=== PATIENT | female | born 1985 | race American Indian/Alaskan Native ===

== ENCOUNTER 2017-01-29 12:49 | Emergency (ER) | payer OTHER ==
[2017-01-29 12:54] VITALS: BP 176/95
[2017-01-29] MEDS ORDERED: BOOSTRIX IM ONE (12:57)
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
== END 2017-01-29 15:45 | disposition left against medical advice (07) ==
LOC: ED 12:49
DX: Z53.21 Procedure and treatment not carried out due to patient leaving prior to being seen by health care provider (principal)

== ENCOUNTER 2019-05-19 16:30 | Emergency (ER) | payer OTHER ==
--- NOTE | 2019-05-19 17:24 | Emergency Department Report ---
Blank Doc - Documentation Documentation: 33-year-old female that presents with URI symptoms. This initial assessment/diagnostic orders/clinical plan/treatment(s) is/are subject to change based on patient's health status, clinical progression and re- assessment by fellow clinical providers in the ED. Further treatment and workup at subsequent clinical providers discretion. Patient/guardians urged not to elope from the ED as their condition may be serious if not clinically assessed and managed. Initial orders include: 1- Patient sent to [facility] for further evaluation and treatment 2- cxr
--- NOTE | 2019-05-19 18:00 | XRay Report ---
CHEST 2 VIEWS INDICATION / CLINICAL INFORMATION: cough. COMPARISON: None available. FINDINGS: SUPPORT DEVICES: None. HEART / MEDIASTINUM: No significant abnormality. LUNGS / PLEURA: No significant pulmonary or pleural abnormality. No pneumothorax. ADDITIONAL FINDINGS: No significant additional findings. IMPRESSION: 1. No acute findings. Signer Name: Lj Garcia MD Signed: 05/19/2019 5:56 PM Workstation Name: [id number]
[2019-05-19] MEDS ORDERED: IBUPROFEN 600 MG TAB PO ONE (20:23)
[2019-05-19] MEDS ORDERED: IPRATROPIUM/ALBUTEROL SULFATE 3 ML AMPUL.NEB IH ONE (20:23)
[2019-05-19] MEDS ORDERED: predniSONE 20 MG TAB PO ONE (20:23)
--- NOTE | 2019-05-19 22:07 | Emergency Department Report ---
- General Chief Complaint: Upper Respiratory Infection Stated Complaint: COUGHING/CHEST PAIN Time Seen by Provider: 05/19/19 17:23 Source: patient Mode of arrival: Ambulatory Limitations: No Limitations - History of Present Illness Initial Comments: Patient is a 33-year-old [place] female with no past medical history but chronic tobacco smoker who presents to the ED with complaint of acute onset persistent nasal and sinus congestion, persistent dry cough, pleuritic chest wall pain, and wheezing and shortness of breath for the last 2 days. Patient states that she's been taking [id number] decongestants with no relief. Patient denies dizziness, chest pain, palpitations, syncope, fever, chills, sore throat, nausea and vomiting, vision changes, abdominal pain, headache or back pain. Patient states that no one else at home has had similar symptoms. MD Complaint: cough, rhinorrhea, nasal congestion, sinus pain -: Sudden, days(s) (2) Severity: severe Severity scale (0 -10): 7 Quality: sharp, aching Consistency: constant Improves With: nothing Worsens With: nothing Associated Symptoms: denies other symptoms, fever, chills, myalgias, headache, rhinorrhea, nasal congestion, cough, shortness of breath. denies: diaphoresis, stiff neck, chest pain, nausea, vomiting, diarrhea, dysuria, rash, right sweats, epistaxis, hoarseness, other Treatments Prior to Arrival: none - Related Data Previous Rx's Medication Instructions Recorded Last Taken Type Ibuprofen [Motrin] 800 mg PO TID PRN #20 tablet 07/11/13 Unknown Rx LORazepam [Ativan] 1 mg PO QHS #20 tab 07/11/13 Unknown Rx ALBUTEROL Inhaler (OR & NICU) 1 - 2 puff IH Q6H PRN #1 inh 05/19/19 Unknown Rx [ProAir HFA Inhaler] Benzonatate [Tessalon Perles] 100 mg PO Q8HR #30 capsule 05/19/19 Unknown Rx Cetirizine HCl [Zyrtec 10mg tab] 10 mg PO DAILY #30 tablet 05/19/19 Unknown Rx Doxycycline Hyclate 100 mg PO Q12H #20 tablet. 05/19/19 Unknown Rx Ibuprofen [Motrin] 600 mg PO Q8H PRN #24 tab 05/19/19 Unknown Rx methylPREDNISolone [Medrol 4MG 4 mg PO DAILY #21 tab.ds.pk 05/19/19 Unknown Rx DOSEPAK (21 tabs)] Allergies Allergy/AdvReac Type Severity Reaction Status Date / Time nickel Allergy Rash Verified 01/29/17 12:55 ED Review of Systems ROS: Stated complaint: COUGHING/CHEST PAIN Other details as noted in HPI Constitutional: denies: chills, fever Eyes: denies: eye pain, eye discharge, vision change ENT: congestion. denies: ear pain, throat pain Respiratory: cough, shortness of breath, wheezing Cardiovascular: denies: chest pain, palpitations Endocrine: no symptoms reported Gastrointestinal: denies: abdominal pain, nausea, diarrhea Genitourinary: denies: urgency, dysuria, discharge Musculoskeletal: denies: back pain, joint swelling, arthralgia Skin: denies: rash, lesions Neurological: denies: headache, weakness, paresthesias Psychiatric: denies: anxiety, depression Hematological/Lymphatic: denies: easy bleeding, easy bruising ED Past Medical Hx - Past Medical History Previous Medical History?: Yes Additional medical history: anxiety - Surgical History Past Surgical History?: No - Social History Smoking Status: Never Smoker Substance Use Type: None - Medications Home Medications: Home Medications Medication Instructions Recorded Confirmed Last Taken Type Ibuprofen [Motrin] 800 mg PO TID PRN #20 tablet 07/11/13 Unknown Rx LORazepam [Ativan] 1 mg PO QHS #20 tab 07/11/13 Unknown Rx ALBUTEROL Inhaler (OR & NICU) 1 - 2 puff IH Q6H PRN #1 inh 05/19/19 Unknown Rx [ProAir HFA Inhaler] Benzonatate [Tessalon Perles] 100 mg PO Q8HR #30 capsule 05/19/19 Unknown Rx Cetirizine HCl [Zyrtec 10mg tab] 10 mg PO DAILY #30 tablet 05/19/19 Unknown Rx Doxycycline Hyclate 100 mg PO Q12H #20 tablet. 05/19/19 Unknown Rx Ibuprofen [Motrin] 600 mg PO Q8H PRN #24 tab 05/19/19 Unknown Rx methylPREDNISolone [Medrol 4MG 4 mg PO DAILY #21 tab.ds.pk 05/19/19 Unknown Rx DOSEPAK (21 tabs)] ED Physical Exam - General Limitations: No Limitations General appearance: alert, in no apparent distress - Head Head exam: Present: atraumatic, normocephalic, normal inspection - Eye Eye exam: Present: normal appearance, PERRL, EOMI Pupils: Present: normal accommodation - ENT ENT exam: Present: normal orophraynx, mucous membranes moist, TM's normal bilaterally, normal external ear exam, other (Grossly congested nasal passages, palpable frontal sinus tenderness) - Neck Neck exam: Present: normal inspection, full ROM. Absent: tenderness - Respiratory Respiratory exam: Present: wheezes (moderately diffuse coarse wheezes throughout). Absent: respiratory distress, rales, rhonchi, chest wall tenderness - Cardiovascular Cardiovascular Exam: Present: normal rhythm, tachycardia, normal heart sounds. Absent: systolic murmur, diastolic murmur, rubs, gallop - GI/Abdominal GI/Abdominal exam: Present: soft, normal bowel sounds. Absent: tenderness, guarding, rebound, hyperactive bowel sounds - Extremities Exam Extremities exam: Present: normal inspection, full ROM, normal capillary refill - Back Exam Back exam: Present: normal inspection, full ROM. Absent: tenderness, CVA tenderness (L), muscle spasm, paraspinal tenderness, vertebral tenderness - Neurological Exam Neurological exam: Present: alert, oriented X3, CN II-XII intact, normal gait, reflexes normal - Psychiatric Psychiatric exam: Present: normal affect, normal mood - Skin Skin exam: Present: warm, dry, intact, normal color. Absent: rash ED Course Vital Signs 05/19/19 05/19/19 05/19/19 16:35 20:57 21:09 Temperature 98.1 F Pulse Rate 113 H Pulse Rate [ 108 H Posterior Bilateral Throughout] Respiratory 18 18 Rate Respiratory 18 Rate [Posterior Bilateral Throughout] Blood Pressure 148/102 O2 Sat by Pulse 98 Oximetry ED Medical Decision Making - Radiology Data Radiology results: report reviewed, image reviewed Chest x-ray shows no acute cardiopulmonary commodities or pneumonitis. - Medical Decision Making This is a 33-year-old female who is a chronic tobacco user and who presented to the ED with shortness of breath, wheezing, dry cough and nasal and sinus congestion. In the ED, patient is alert and oriented 3 and is not in any distress but tachycardic in triage. Chest x-ray shows no acute cardiopulmonary abnormalities or pneumonitis. Patient received DuoNeb treatment and oral prednisone as well as ibuprofen for chest wall pain. On reevaluation, patient's wheezing resolved and tachycardia improved. Patient was discharged home on medications and advised follow-up with her primary care physician in 5-7 days for reevaluation or return to the ED immediately if symptoms get worse. Patient was also advised to consider quitting tobacco use to improve her symptoms. - Differential Diagnosis sinusitis; URI; Bronchitis; Flu Critical care attestation.: If time is entered above; I have spent that time in minutes in the direct care of this critically ill patient, excluding procedure time. ED Disposition Clinical Impression: Acute upper respiratory infection, Acute non-recurrent frontal sinusitis Acute bronchitis Qualifiers: Bronchitis organism: other organism Qualified Code(s): J20.8 - Acute bronchitis due to other specified organisms Disposition: - TO HOME OR SELFCARE Is pt being admited?: No Does the pt Need Aspirin: No Condition: Stable Instructions: Acute Bronchitis (ED), Acute Bacterial Rhinosinusitis (ED), Upper Respiratory Infection (ED) Additional Instructions: Take medication with food, drink plenty of fluids and follow-up with your primary care physician in 7-10 days for reevaluation. Return to the ED immediately if symptoms get worse. Consider quitting smoking tobacco products. Prescriptions: Doxycycline Hyclate 100 mg PO Q12H #20 tablet. methylPREDNISolone [Medrol 4MG DOSEPAK (21 tabs)] 4 mg PO DAILY #21 tab.ds.pk Ibuprofen [Motrin] 600 mg PO Q8H PRN #24 tab PRN Reason: Pain ALBUTEROL Inhaler (OR & NICU) [ProAir HFA Inhaler] 1 - 2 puff IH Q6H PRN #1 inh PRN Reason: Dyspnea Benzonatate [Tessalon Perles] 100 mg PO Q8HR #30 capsule Cetirizine HCl [Zyrtec 10mg tab] 10 mg PO DAILY #30 tablet Referrals: DIONTE LONDON MD [Staff Physician] - 7-10 days [facility] [Outside] - 7-10 days Forms: Work/School Release Form(ED) Time of Disposition: 21:58 Print Language: SLOVENIAN
[2019-05-19 22:26] VITALS: BP 154/95
== END 2019-05-19 22:26 | disposition home or self-care (01) ==
LOC: ED 16:30
DX: J06.9 Acute upper respiratory infection, unspecified (principal); J20.9 Acute bronchitis, unspecified; J01.10 Acute frontal sinusitis, unspecified; F41.9 Anxiety disorder, unspecified; Z91.048 Other nonmedicinal substance allergy status; Z79.899 Other long term (current) drug therapy
CPT/HCPCS: 71046; 94640; 99283; J7512; 94644

== ENCOUNTER 2019-08-27 16:15 | Inpatient (IN) | payer OTHER ==
[2019-08-27] MEDS ORDERED: METOCLOPRAMIDE 10 MG/2 ML INJ IV ONE (16:49)
--- NOTE | 2019-08-27 16:51 | Emergency Department Report ---
ED General Adult HPI - General Chief complaint: Nausea/Vomiting/Diarrhea Stated complaint: 10 WKS /CONSTANT VOMITING Time Seen by Provider: 08/27/19 16:39 PUI?: No Source: patient, RN notes reviewed Mode of arrival: Ambulatory - History of Present Illness Initial comments: Patient is a 33-year-old female who is not known to myself previously, states no fever, cough, or positive exposure to coronavirus, resenting to the ER today with a complaint of nausea, vomiting and possible . Patient reports positive home test in June. Her last known menstruation is in May. Assuming she is today, she would be a G5, P3. She denies long-term medical conditions, and history of abdominal surgeries. She does report history of "morning sickness" and prior pregnancies. Today, the patient presents to the ER with a complaint of painless nausea and vomiting x3 weeks, malaise, weakness, fatigue, inability to tolerate oral feeds or liquids, and possible unintentional weight loss. There is no complaint of headache, neck pain, chest pain, abdominal pain, shortness of breath, urinary symptom, patient defecated yesterday, and there is no complaint of focal extremity weakness and or numbness. The patient states that she does not smoke cigarettes or cannabis at this time, and that she is not experiencing secondhand exposure to the aforementioned. -: Gradual, week(s) Consistency: constant Improves with: none Worsens with: eating (Eating eating and drinking) - Related Data Previous Rx's Medication Instructions Recorded Last Taken Type Ibuprofen [Motrin] 800 mg PO TID PRN #20 tablet 07/11/13 Unknown Rx LORazepam [Ativan] 1 mg PO QHS #20 tab 07/11/13 Unknown Rx Albuterol INH(or & Nicu Only) 1 - 2 puff IH Q6H PRN #1 inh 05/19/19 Unknown Rx [ProAir HFA Inhaler] Benzonatate [Tessalon Perles] 100 mg PO Q8HR #30 capsule 05/19/19 Unknown Rx Cetirizine HCl [Zyrtec 10mg tab] 10 mg PO DAILY #30 tablet 05/19/19 Unknown Rx Doxycycline Hyclate 100 mg PO Q12H #20 tablet 05/19/19 Unknown Rx Ibuprofen [Motrin] 600 mg PO Q8H PRN #24 tab 05/19/19 Unknown Rx methylPREDNISolone [Medrol 4MG 4 mg PO DAILY #21 tab.ds.pk 05/19/19 Unknown Rx DOSEPAK (21 tabs)] Allergies Allergy/AdvReac Type Severity Reaction Status Date / Time nickel Allergy Rash Verified 01/29/17 12:55 ED Review of Systems ROS: Stated complaint: 10 WKS /CONSTANT VOMITING Other details as noted in HPI Constitutional: malaise, weakness. denies: fever Eyes: denies: eye discharge ENT: denies: dental pain Respiratory: denies: cough Cardiovascular: denies: syncope Gastrointestinal: nausea, vomiting. denies: abdominal pain, diarrhea, consti pation, hematemesis, melena, hematochezia Genitourinary: denies: dysuria Musculoskeletal: as per HPI Skin: as per HPI Neurological: as per HPI, weakness Psychiatric: anxiety Hematological/Lymphatic: as per HPI ED Past Medical Hx - Past Medical History Previous Medical History?: No Additional medical history: anxiety - Surgical History Past Surgical History?: No - Social History Smoking Status: Never Smoker Substance Use Type: None - Medications Home Medications: Home Medications Medication Instructions Recorded Confirmed Last Taken Type Ibuprofen [Motrin] 800 mg PO TID PRN #20 tablet 07/11/13 Unknown Rx LORazepam [Ativan] 1 mg PO QHS #20 tab 07/11/13 Unknown Rx Albuterol INH(or & Nicu Only) 1 - 2 puff IH Q6H PRN #1 inh 05/19/19 Unknown Rx [ProAir HFA Inhaler] Benzonatate [Tessalon Perles] 100 mg PO Q8HR #30 capsule 05/19/19 Unknown Rx Cetirizine HCl [Zyrtec 10mg tab] 10 mg PO DAILY #30 tablet 05/19/19 Unknown Rx Doxycycline Hyclate 100 mg PO Q12H #20 tablet. 05/19/19 Unknown Rx Ibuprofen [Motrin] 600 mg PO Q8H PRN #24 tab 05/19/19 Unknown Rx methylPREDNISolone [Medrol 4MG 4 mg PO DAILY #21 tab.ds.pk 05/19/19 Unknown Rx DOSEPAK (21 tabs)] ED Physical Exam - General Limitations: No Limitations General appearance: alert, anxious - Head Head exam: Present: atraumatic, normocephalic - Eye Eye exam: Present: normal appearance, EOMI. Absent: nystagmus - ENT ENT exam: Present: normal exam, normal external ear exam, other (Patient speaking in full sentences with no stridor or dysphonia) - Neck Neck exam: Present: normal inspection, full ROM. Absent: tenderness, meningismus - Respiratory Respiratory exam: Present: normal lung sounds bilaterally. Absent: respiratory distress - Cardiovascular Cardiovascular Exam: Present: normal rhythm, tachycardia, normal heart sounds. Absent: systolic murmur, diastolic murmur, rubs, gallop - GI/Abdominal GI/Abdominal exam: Present: soft. Absent: distended, tenderness, guarding, rebound, rigid, pulsatile mass - Extremities Exam Extremities exam: Present: normal inspection, full ROM, other (2+ pulses noted in the bilateral upper and lower extremities. There is no palpable cord. negative Homans sign. Muscular compartments are soft. The pelvis is stable.). Absent: pedal edema, calf tenderness - Back Exam Back exam: Present: normal inspection, full ROM. Absent: tenderness, CVA tenderness (R), CVA tenderness (L), paraspinal tenderness, vertebral tenderness - Neurological Exam Neurological exam: Present: alert, normal gait, other (There is no facial droop. The tongue is midline. Extraocular movements are intact bilaterally. There is 5 out of 5 strength in bilateral upper and lower extremities. Sensation is intact to light touch bilateral upper and lower extremities. There is a normal gait.). Absent: motor sensory deficit - Psychiatric Psychiatric exam: Present: anxious - Skin Skin exam: Present: warm, dry, intact, normal color. Absent: rash ED Course Vital Signs 08/27/19 08/27/19 08/27/19 18:17 19:00 19:30 Temperature 98.5 F Pulse Rate 126 H 134 H 112 H Respiratory 16 20 16 Rate Blood Pressure 172/111 145/92 Blood Pressure 154/102 [Right] O2 Sat by Pulse 99 100 100 Oximetry 08/27/19 08/27/19 08/27/19 20:06 20:15 20:30 Temperature Pulse Rate 121 H 113 H 113 H Respiratory 22 15 Rate Blood Pressure 145/92 145/92 110/69 Blood Pressure [Right] O2 Sat by Pulse 100 100 Oximetry 08/27/19 08/27/19 20:35 20:41 Temperature 98.0 F Pulse Rate 112 H Respiratory 20 13 Rate Blood Pressure 110/69 Blood Pressure [Right] O2 Sat by Pulse 100 Oximetry - Reevaluation(s) Reevaluation #1: 08/27/19 17:49 Differential diagnosis, including but not limited to: Nausea and vomiting of , dehydration, electrolyte derangement, hyperemesis gravidarum Assessment and plan: 33-year-old female who reports that she is with nausea and vomiting, assuming she is , suspect nausea and vomiting of versus h yperemesis gravidarum. Patient is alert and oriented x3, clinically sober, walking with a steady gait at this time. She is adamant that she is not consuming or being exposed to marijuana or cannabis. We will treat her symptoms, give her IV fluids, obtain pelvic ultrasound, and reassess after her data points have resulted. Reevaluation #2: 08/27/19 18:23 Ultrasound confirms intrauterine , laboratory studies show hypomagnesemia, pseudohyponatremia, anion gap acidosis, and hyperglycemia, suspicious for diabetic ketoacidosis. We will change IV fluids to normal saline, canceled D5 half-normal, initiate insulin push, insulin drip, and admit to the medical service for correction of electrolyte derangement. We have discussed this with OB on-call, Dr. De La Cruz, who will follow in consultation. Dr. Garza, accept the patient to the medical service for further management. Patient will be updated about plan of care peer 08/27/19 18:25 Reevaluation #3: 08/27/19 19:17 Discussed history, physical, laboratory studies with patient, discussed need for admission, she is amenable to hospitalization. ED Medical Decision Making - Lab Data Result diagrams: 08/27/19 16:49 08/27/19 18:33 Lab Results 08/27/19 08/27/19 08/27/19 Range/Units 16:45 16:49 16:50 Hgb 15.9 H (10.1-14.3) gm/dl Hct 45.5 H (30.3-42.9) % Plt Count 181 (140-440) K/mm3 PT 13.3 (12.2-14.9) Sec. INR 1.00 (0.87-1.13) Magnesium (1.7-2.3) mg/dL Total Creatine Kinase (30-135) units/L Urine Color Straw (Yellow) Urine Turbidity Clear (Clear) Urine pH 6.0 (5.0-7.0) Ur Specific [employer] 1.036 H (1.003-1.030) Urine Protein <15 mg/dl (Negative) mg/dL Urine Glucose (UA) >=500 (Negative) mg/dL Urine Ketones 20 (Negative) mg/dL Urine Blood Neg (Negative) Urine Nitrite Neg (Negative) Urine Bilirubin Neg (Negative) Urine Urobilinogen < 2.0 (<2.0) mg/dL Ur Leukocyte Esterase Neg (Negative) Urine WBC (Auto) 3.0 (0.0-6.0) /HPF Urine RBC (Auto) 4.0 (0.0-6.0) /HPF U Epithel Cells (Auto) < 1.0 (0-13.0) /HPF Urine Mucus Few /HPF Urine Opiates Screen Urine Methadone Screen Ur Barbiturates Screen Ur Phencyclidine Scrn Ur Amphetamines Screen U Benzodiazepines Scrn Urine Cocaine Screen U Marijuana (THC) Screen Drugs of Abuse Note 08/27/19 08/27/19 Range/Units 16:50 17:15 Hgb (10.1-14.3) gm/dl Hct (30.3-42.9) % Plt Count (140-440) K/mm3 PT (12.2-14.9) Sec. INR (0.87-1.13) Magnesium 1.60 L (1.7-2.3) mg/dL Total Creatine Kinase 49 (30-135) units/L Urine Color (Yellow) Urine Turbidity (Clear) Urine pH (5.0-7.0) Ur Specific [employer] (1.003-1.030) Urine Protein (Negative) mg/dL Urine Glucose (UA) (Negative) mg/dL Urine Ketones (Negative) mg/dL Urine Blood (Negative) Urine Nitrite (Negative) Urine Bilirubin (Negative) Urine Urobilinogen (<2.0) mg/dL Ur Leukocyte Esterase (Negative) Urine WBC (Auto) (0.0-6.0) /HPF Urine RBC (Auto) (0.0-6.0) /HPF U Epithel Cells (Auto) (0-13.0) /HPF Urine Mucus /HPF Urine Opiates Screen Presumptive negative Urine Methadone Screen Presumptive negative Ur Barbiturates Screen Presumptive negative Ur Phencyclidine Scrn Presumptive negative Ur Amphetamines Screen Presumptive negative U Benzodiazepines Scrn Presumptive negative Urine Cocaine Screen Presumptive negative U Marijuana (THC) Screen Presumptive positive Drugs of Abuse Note Disclamer - EKG Data -: EKG Interpreted by Me EKG shows normal: sinus rhythm Rate: tachycardia - EKG Data When compared to previous EKG there are: previous EKG unavailable 08/27/19 19:53 Sinus rhythm, tachycardia, 110 bpm, normal axis, normal intervals, juvenile T wave inversion, borderline high left ventricular voltage, not a STEMI, no prior for comparison, abnormal EKG. - Radiology Data Radiology results: pending, report reviewed, image reviewed Critical Care Time: Yes Critical care time in (mins) excluding proc time.: 45 Critical care attestation.: If time is entered above; I have spent that time in minutes in the direct care of this critically ill patient, excluding procedure time. ED Disposition Clinical Impression: Dehydration, Hypomagnesemia Qualifiers: Weeks of gestation: 10 weeks Qualified Code(s): Z3A.10 - 10 weeks gestation of DKA (diabetic ketoacidoses) Qualifiers: Diabetes mellitus complication detail: without coma Disposition: DC-09 OP ADMIT IP TO THIS HOSP Is pt being admited?: Yes Does the pt Need Aspirin: No Condition: Critical
[2019-08-27] MEDS ORDERED: D5W/0.45% NACL 1,000 ML IV SCH ×2 (17:00)
[2019-08-27 17:04] LABS: Bilirubin,Urine NEG (Negative); Blood,Urine NEG (Negative); Color,Urine Straw (Yellow); Mucus,Urine FEW /HPF; Protein,Urine <15 mg/dL mg/dL (Negative); Urobilinogen,Urine < 2.0 mg/dL (<2.0)
[2019-08-27 17:13] LABS: Amphetamine Screen,Urine PRESUMPTIVE NEGATIVE; Benzodiazepines Screen,Urine PRESUMPTIVE NEGATIVE; Cocaine Screen,Urine PRESUMPTIVE NEGATIVE; Methadone Screen,Urine PRESUMPTIVE NEGATIVE; Opiate Screen,Urine PRESUMPTIVE NEGATIVE
[2019-08-27 17:24] LABS: Cannabinoid Screen,Urine PRESUMPTIVE POSITIVE
[2019-08-27 17:33] LABS: Hematocrit 45.5 % (30.3-42.9); Hemoglobin 15.9 gm/dl (10.1-14.3)
[2019-08-27 17:52] LABS: Alanine Aminotransferase 26 units/L (7-56); Albumin 4.4 g/dL (3.9-5); BUN/Creatinine Ratio 8; Blood Urea Nitrogen 5 mg/dL (7-17); Calcium 9.6 mg/dL (8.4-10.2); Hemolysis Index 5
[2019-08-27] MEDS ORDERED: MAGNESIUM SULFATE 2 GM/50 ML BAG IV ONE ×2 (17:52→19:05)
[2019-08-27] MEDS ORDERED: INSULIN REGULAR, HUMAN 100 UNITS/1 ML IV ONE ×2 (18:10→18:43)
[2019-08-27] MEDS ORDERED: SODIUM CHLORIDE 0.9% 1000 ML 2,000 ML IV ONE (18:10)
[2019-08-27] MEDS ORDERED: DEXTROSE 50% IN WATER (25GM) 50 ML SYRINGE IV PRN ×2 (18:22→19:02)
--- NOTE | 2019-08-27 18:25 | History and Physical Report ---
History of Present Illness Chief complaint: I do not know what is going on History of present illness: 33 YO Female with Anxiety at 10 weeks gestation presents to ED for evaluation. Patient states that she has experienced nausea, multiple episodes of vomiting over the past 3 weeks with persistent and worsening symptoms over the past 1 week. Patient acknowledges polydipsia polyuria and polyphagia. Patient transported to [facility] via private vehicle for further care and evaluation. Patient seen and evaluated in the emergency department. Lab and imaging studies reviewed. Patient found to have diabetic ketoacidosis with serum blood glucose greater than 500, metabolic acidosis, and volume depletion. Patient initiated on DKA protocol and admitted to the ICU. Patient symptoms improved with IV fluid resuscitation and patient was subsequently downgraded to the medical floor. [facility] [employer] [employer] service consult placed in ED. Patient denies fever, chills, chest pain, palpitations, productive cough, skin rash, shortness of breath, malaise, headache, ingestion of food/water from new or different sources, or recent known ill contacts. Patient denies coronavirus exposure. No prior admission for review. No medication listed at time of admission for reconciliation. PUI?: No Past History Past Medical History: other (See HPI) Past Surgical History: No surgical history, Other (Reviewed) Social history: , lives with family. denies: smoking, alcohol abuse, prescription drug abuse Family history: diabetes, hypertension Medications and Allergies Allergies Allergy/AdvReac Type Severity Reaction Status Date / Time nickel Allergy Rash Verified 01/29/17 12:55 Home Medications Medication Instructions Recorded Confirmed Last Taken Type Ibuprofen [Motrin] 800 mg PO TID PRN #20 tablet 07/11/13 Unknown Rx LORazepam [Ativan] 1 mg PO QHS #20 tab 07/11/13 Unknown Rx Albuterol INH(or & Nicu Only) 1 - 2 puff IH Q6H PRN #1 inh 05/19/19 Unknown Rx [ProAir HFA Inhaler] Benzonatate [Tessalon Perles] 100 mg PO Q8HR #30 capsule 05/19/19 Unknown Rx Cetirizine HCl [Zyrtec 10mg tab] 10 mg PO DAILY #30 tablet 05/19/19 Unknown Rx Doxycycline Hyclate 100 mg PO Q12H #20 tablet 05/19/19 Unknown Rx Ibuprofen [Motrin] 600 mg PO Q8H PRN #24 tab 05/19/19 Unknown Rx methylPREDNISolone [Medrol 4MG 4 mg PO DAILY #21 tab.ds.pk 05/19/19 Unknown Rx DOSEPAK (21 tabs)] Active Meds: Active Medications Dextrose (D50w (25gm) Syringe) 0 ml IV Q30MIN PRN; Protocol PRN Reason: Hypoglycemia Insulin Human Regular 100 (units/ Sodium Chloride) 100 mls @ 1 mls/hr IV TITR LAILA; Protocol Potassium Chloride/Dextrose/Sod Cl (D5w/0.45% Nacl/Kcl 20 Meq) 20 meq in 1,000 mls @ 125 mls/hr IV DIRECT LAILA Review of Systems Constitutional: no weight loss, no weight gain, no fever, no chills, no weakness, no malaise, no lethargy Ears, nose, mouth and throat: no ear pain, no ear discharge, no tinnitis, no decreased hearing, no nose pain Cardiovascular: no chest pain, no orthopnea, no palpitations, no rapid/irregular heart beat, no edema Respiratory: no cough, no cough with sputum, no excessive sputum, no hemoptysis Gastrointestinal: nausea, vomiting, no abdominal pain, no constipation, no change in bowel habits, no BRBPR, no melena, no hematochezia Genitourinary Female: no pelvic pain, no flank pain, no menorrhagia Rectal: no pain, no incontinence, no bleeding Musculoskeletal: no neck stiffness, no neck pain, no shooting leg pain Integumentary: no rash, no pruritis, no redness, no sores, no wounds, no jaundice Neurological: no head injury, no transient paralysis, no paralysis, no weakness, no parathesias, no numbness, no seizures Psychiatric: no anxiety, no memory loss, no change in sleep habits, no sleep disturbances, no insomnia Endocrine: polyphagia, excessive thirst, polydipsia, polyuria, no cold intolerance, no heat intolerance, no nocturia, no excessive sweating Hematologic/Lymphatic: no easy bruising, no easy bleeding, no lymphedema Allergic/Immunologic: no urticaria, no persistent infections, no anaphylaxis Exam - Constitutional Vitals: Temp Pulse Resp BP Pulse Ox 98.5 F 126 H 16 154/102 99 08/27/19 18:17 08/27/19 18:17 08/27/19 18:17 08/27/19 18:17 08/27/19 18:17 General appearance: Present: no acute distress, well-nourished - EENT Eyes: Present: PERRL ENT: hearing intact, clear oral mucosa - Neck Neck: Present: supple, normal ROM - Respiratory Respiratory effort: normal Respiratory: bilateral: CTA - Cardiovascular Heart Sounds: Present: S1 & S2. Absent: rub, click - Extremities Extremities: pulses symmetrical, No edema Peripheral Pulses: within normal limits - Abdominal General gastrointestinal: Present: soft, non-tender, non-distended, normal bowel sounds Female genitourinary: Present: normal - Integumentary Integumentary: Present: clear, warm, dry - Musculoskeletal Musculoskeletal: gait normal, strength equal bilaterally - Psychiatric Psychiatric: appropriate mood/affect, intact judgment & insight - Neurologic Neurologic: CNII-XII intact, moves all extremities Results - Labs CBC & Chem 7: 08/27/19 16:49 08/27/19 17:15 Labs: Abnormal lab results 08/27/19 08/27/19 08/27/19 Range/Units 16:49 16:50 17:15 Hgb 15.9 H (10.1-14.3) gm/dl Hct 45.5 H (30.3-42.9) % Sodium 127 L (137-145) mmol/L Chloride 88.3 L (98-107) mmol/L Carbon Dioxide 17 L (22-30) mmol/L BUN 5 L (7-17) mg/dL Creatinine 0.6 L (0.7-1.2) mg/dL Glucose 547 H* (65-100) mg/dL Magnesium (1.7-2.3) mg/dL Ur Specific [place] 1.036 H (1.003-1.030) 08/27/19 Range/Units 17:15 Hgb (10.1-14.3) gm/dl Hct (30.3-42.9) % Sodium (137-145) mmol/L Chloride (98-107) mmol/L Carbon Dioxide (22-30) mmol/L BUN (7-17) mg/dL Creatinine (0.7-1.2) mg/dL Glucose (65-100) mg/dL Magnesium 1.60 L (1.7-2.3) mg/dL Ur Specific [place] (1.003-1.030) Assessment and Plan - Patient Problems (1) DKA (diabetic ketoacidoses) Current Visit: Yes Status: Acute Qualifiers: Diabetes mellitus complication detail: without coma Plan to address problem: Patient initially admitted to ICU and initiated on DKA protocol. Patient downgraded to medical floor and initiated on high-dose sliding scale insulin therapy, consistent carbohydrate diet, Accu-Chek, and hypoglycemia protocol. (2) Metabolic acidosis Current Visit: Yes Status: Acute Plan to address problem: BMP, repeat BMP in a.m., treat DKA, IV fluid resuscitation therapy. (3) Current Visit: Yes Status: Acute Qualifiers: Weeks of gestation: 10 weeks Qualified Code(s): Z3A.10 - 10 weeks gestation of Plan to address problem: [facility] [employer] service consult placed in ED. (4) DVT prophylaxis Current Visit: Yes Status: Acute Plan to address problem: SCD to bilateral lower extremities while in bed, patient is ambulatory.
--- NOTE | 2019-08-27 18:27 | Ultrasound Report ---
OB Ultrasound HISTORY: n/v no care. TECHNIQUE: Grayscale and color imaging performed. COMPARISON: None FINDINGS: Transabdominal and endovaginal imaging was performed. The uterus measures 1.7 x 8.7 x 10.1 cm and contains a single intrauterine gestation with crown-rump length of 2.8 cm corresponding with an EGA of 9 weeks and 4 days. Estimated delivery date is 03/27/20 20. Heart rate is 183 bpm. No acute abnormality identified. The ovaries are normal in appearance. No appreciable pelvic free fluid. IMPRESSION: Single viable intrauterine gestation as above. Signer Name: Jose Burgos MD Signed: 08/27/2019 6:22 PM Workstation Name: [id number]
[2019-08-27] MEDS ORDERED: DOXYCYCLINE HYCLATE 100 MG PO SCH (18:30)
[2019-08-27] MEDS ORDERED: D5W/0.45% NACL/KCL 20 MEQ 20 MEQ/1,000 ML BAG IV SCH (19:00)
[2019-08-27] MEDS ORDERED: INSULIN REGULAR, HUMAN 100 UNITS in SODIUM CHLORIDE 0.9% 99 ML IV SCH (19:00)
[2019-08-27] MEDS ORDERED: DOXYCYCLINE 100 MG TAB ONE (19:06)
[2019-08-27] MEDS ORDERED: SODIUM BICARB 8.4% 50 MEQ/50 ML SYRINGE IV ONE ×2 (19:07→19:41)
[2019-08-27] MEDS: DOXYCYCLINE 100 MG TAB PO SCH (19:14)
[2019-08-27 19:34] LABS: BUN/Creatinine Ratio 10; Blood Urea Nitrogen 5 mg/dL (7-17); Calcium 9.5 mg/dL (8.4-10.2); Hemolysis Index 17
[2019-08-27] MEDS ORDERED: LORazepam 1 MG TAB PO SCH (22:00)
[2019-08-27] MEDS: BENZONATATE 100 MG CAP PO SCH (22:49)
[2019-08-28] MEDS: INSULIN REGULAR, HUMAN 100 UNITS/1 ML SUB-Q SCH ×4 (00:13→18:13)
[2019-08-28] MEDS ORDERED: INSULIN REGULAR, HUMAN 100 UNITS/1 ML ONE (00:13)
[2019-08-28] MEDS: SODIUM CHLORIDE 0.9% 1000 ML 1,000 ML IV SCH (01:38)
[2019-08-28] MEDS: BENZONATATE 100 MG CAP PO SCH (06:28)
--- NOTE | 2019-08-28 09:54 | Consultation ---
History of Present Illness Consult date: 08/28/19 History of present illness: pregestational diabetic,unconrolled hyperemesis gravidarum Medications and Allergies Allergies Allergy/AdvReac Type Severity Reaction Status Date / Time nickel Allergy Rash Verified 01/29/17 12:55 Home Medications Medication Instructions Recorded Confirmed Last Taken Type Ibuprofen [Motrin] 800 mg PO TID PRN #20 tablet 07/11/13 Unknown Rx LORazepam [Ativan] 1 mg PO QHS #20 tab 07/11/13 Unknown Rx Albuterol INH(or & Nicu Only) 1 - 2 puff IH Q6H PRN #1 inh 05/19/19 Unknown Rx [ProAir HFA Inhaler] Benzonatate [Tessalon Perles] 100 mg PO Q8HR #30 capsule 05/19/19 Unknown Rx Cetirizine HCl [Zyrtec 10mg tab] 10 mg PO DAILY #30 tablet 05/19/19 Unknown Rx Doxycycline Hyclate 100 mg PO Q12H #20 tablet.dr 05/19/19 Unknown Rx Ibuprofen [Motrin] 600 mg PO Q8H PRN #24 tab 05/19/19 Unknown Rx methylPREDNISolone [Medrol 4MG 4 mg PO DAILY #21 tab.ds.pk 05/19/19 Unknown Rx DOSEPAK (21 tabs)] Active Meds: Active Medications Benzonatate (Tessalon Perles) 100 mg PO Q8HR [facility] Last Admin: 08/28/19 06:28 Dose: 100 mg Documented by: Cetirizine HCl (Cetirizine) 10 mg PO DAILY [facility] Dextrose (D50w (25gm) Syringe) 50 ml IV Q30MIN PRN; Protocol PRN Reason: Hypoglycemia Doxycycline Hyclate (Vibramycin) 100 mg PO Q12HR [facility] Last Admin: 08/27/19 19:14 Dose: 100 mg Documented by: Sodium Chloride (Nacl 0.9% 1000 Ml) 1,000 mls @ 125 mls/hr IV DIRECT [facility] Last Admin: 08/28/19 01:38 Dose: 125 mls/hr Documented by: Insulin Human Regular (Humulin R) 0 units SUB-Q Q6HR LAILA; Protocol Last Admin: 08/28/19 06:29 Dose: Not Given Documented by: Lorazepam (Ativan) 1 mg PO QHS [facility] Last Admin: 08/27/19 22:48 Dose: Not Given Documented by: Sodium Chloride (Sodium Chloride Flush Syringe 10 Ml) 10 ml IV BID LAILA Last Admin: 08/27/19 22:49 Dose: 10 ml Documented by: Sodium Chloride (Sodium Chloride Flush Syringe 10 Ml) 10 ml IV PRN PRN PRN Reason: LINE FLUSH - Vital Signs Vital signs: Vital Signs Temp Pulse Resp BP Pulse Ox 98.5 F 126 H 16 154/102 99 08/27/19 18:17 08/27/19 18:17 08/27/19 18:17 08/27/19 18:17 08/27/19 18:17 Temp Pulse Resp BP Pulse Ox 98.7 F 111 H 20 128/89 100 08/28/19 01:36 08/28/19 01:36 08/28/19 01:36 08/28/19 01:36 08/28/19 01:36 Results Result Diagrams: 08/27/19 16:49 08/27/19 18:33 Abnormal lab results 08/27/19 08/27/19 08/27/19 Range/Units 16:49 16:49 16:50 Hgb 15.9 H (10.1-14.3) gm/dl Hct 45.5 H (30.3-42.9) % Sodium (137-145) mmol/L Chloride (98-107) mmol/L Carbon Dioxide (22-30) mmol/L BUN (7-17) mg/dL Creatinine (0.7-1.2) mg/dL Glucose (65-100) mg/dL POC Glucose (70-105) Hemoglobin A1c (4-6) % Magnesium (1.7-2.3) mg/dL HCG, Quant 16497 H (0-4) mIU/mL Ur Specific [place] 1.036 H (1.003-1.030) 08/27/19 08/27/19 08/27/19 Range/Units 17:15 17:15 18:33 Hgb (10.1-14.3) gm/dl Hct (30.3-42.9) % Sodium 127 L (137-145) mmol/L Chloride 88.3 L (98-107) mmol/L Carbon Dioxide 17 L (22-30) mmol/L BUN 5 L (7-17) mg/dL Creatinine 0.6 L (0.7-1.2) mg/dL Glucose 547 H* (65-100) mg/dL POC Glucose (70-105) Hemoglobin A1c 11.1 H (4-6) % Magnesium 1.60 L (1.7-2.3) mg/dL HCG, Quant (0-4) mIU/mL Ur Specific [place] (1.003-1.030) 08/27/19 08/27/19 08/28/19 Range/Units 18:33 18:47 00:19 Hgb (10.1-14.3) gm/dl Hct (30.3-42.9) % Sodium 130 L (137-145) mmol/L Chloride 92.3 L (98-107) mmol/L Carbon Dioxide 16 L (22-30) mmol/L BUN 5 L (7-17) mg/dL Creatinine 0.5 L (0.7-1.2) mg/dL Glucose 446 H (65-100) mg/dL POC Glucose 396 H 305 H (70-105) Hemoglobin A1c (4-6) % Magnesium (1.7-2.3) mg/dL HCG, Quant (0-4) mIU/mL Ur Specific [place] (1.003-1.030) 08/28/19 08/28/19 08/28/19 Range/Units 01:55 06:40 09:31 Hgb (10.1-14.3) gm/dl Hct (30.3-42.9) % Sodium (137-145) mmol/L Chloride (98-107) mmol/L Carbon Dioxide (22-30) mmol/L BUN (7-17) mg/dL Creatinine (0.7-1.2) mg/dL Glucose (65-100) mg/dL POC Glucose 203 H 121 H 189 H (70-105) Hemoglobin A1c (4-6) % Magnesium (1.7-2.3) mg/dL HCG, Quant (0-4) mIU/mL Ur Specific [place] (1.003-1.030) All other labs normal. Assessment and Plan pregestational DM, uncontrolled: appreciate IM management Hyperemesis gravidarum: fluid, zofram reglan prn. supportive care. Monitor weight loss closely. Rafael De La Cruz MD [employer] [facility]
[2019-08-28] MEDS ORDERED: CETIRIZINE 10 MG TAB PO SCH (10:00)
[2019-08-28] MEDS: DOXYCYCLINE 100 MG TAB PO SCH (11:56)
[2019-08-28] MEDS ORDERED: hydrALAZINE 20 MG/1 ML INJ IV PRN (17:20)
[2019-08-28] MEDS ORDERED: LORazepam 1 MG TAB PO PRN (17:20)
--- NOTE | 2019-08-28 17:27 | Progress Note ---
Assessment and Plan Assessment and plan: 33 YO Female with Anxiety at 10 weeks gestation was admitted through emergency room with nausea, multiple episodes of nausea and vomiting over the past 3 weeks , initial evaluation was consistent with diabetic ketoacidosis, new onset gestational diabetes, --DKA (diabetic ketoacidoses) Current Visit: Yes Status: Acute Present on admission , resolved --gestational diabetes mellitus Accu-Chek sliding scale coverage ADA diet, Novolin 70/30 insulin Check A1c, diabetic education, nutrition education -- Metabolic acidosis/due to DKA Current Visit: Yes Status: Acute Aggressive IV hydration , monitor blood sugars Supportive care --Early : Current Visit: Yes Status: Acute Management per [facility] --Pseudohyponatremia; Secondary to hyperglycemia, as the blood sugars improve, sodium levels improved --Hypomagnesemia; replenished per protocol. Follow electrolytes -- DVT prophylaxis Current Visit: Yes Status: Acute SCD , Lovenox Monitor closely and adjust the management as needed Plan of care reviewed with the patient and her nurse Disposition; follow clinically, may DC home when blood sugars are controlled May consider home health nurse for disease monitoring History Interval history: Patient seen and examined at the bedside this morning Admitted with gestational diabetes/DKA Patient's chart, medications, tests reviewed Patient feels slightly better Vital signs reviewed PUI?: No Hospitalist Physical - Constitutional Vitals: Temp Pulse Resp BP Pulse Ox 98.4 F 99 H 18 138/85 100 08/28/19 16:47 08/28/19 16:47 08/28/19 16:47 08/28/19 16:47 08/28/19 16:47 General appearance: Present: no acute distress, well-nourished - EENT Eyes: Present: PERRL, EOM intact - Neck Neck: Present: supple, normal ROM - Respiratory Respiratory effort: normal Respiratory: bilateral: diminished, negative: rales, rhonchi, wheezing - Cardiovascular Rhythm: regular Heart Sounds: Present: S1 & S2 - Extremities Extremities: no ischemia, No edema - Abdominal General gastrointestinal: soft, non-tender, non-distended, normal bowel sounds - Integumentary Integumentary: Present: clear, warm - Psychiatric Psychiatric: appropriate mood/affect, cooperative - Neurologic Neurologic: CNII-XII intact, moves all extremities KULWINDER score - Kulwinder Score Age > 65: (0) No Aspirin use within the Past 7 Days: (0) No 3 or more CAD Risk Factors: (0) No 2 or more Angina events in past 24 hrs: (0) No Known CAD with more than 50% Stenosis: (0) No Elevated Cardiac Markers: (0) No ST Deviation Greater than 0.5mm: (0) No KULWINDER Score: 0 Results - Labs CBC & Chem 7: 08/27/19 16:49 08/27/19 18:33 Labs: Laboratory Last Values Hgb 15.9 gm/dl (10.1-14.3) H 08/27/19 16:49 Hct 45.5 % (30.3-42.9) H 08/27/19 16:49 Plt Count 181 K/mm3 (140-440) 08/27/19 16:49 PT 13.3 Sec. (12.2-14.9) 08/27/19 16:45 INR 1.00 (0.87-1.13) 08/27/19 16:45 Sodium 130 mmol/L (137-145) L 08/27/19 18:33 Potassium 3.6 mmol/L (3.6-5.0) 08/27/19 18:33 Chloride 92.3 mmol/L (98-107) L 08/27/19 18:33 Carbon Dioxide 16 mmol/L (22-30) L 08/27/19 18:33 Anion Gap 25 mmol/L 08/27/19 18:33 BUN 5 mg/dL (7-17) L 08/27/19 18:33 Creatinine 0.5 mg/dL (0.7-1.2) L 08/27/19 18:33 Estimated GFR > 60 ml/min 08/27/19 18:33 BUN/Creatinine Ratio 10 % 08/27/19 18:33 Glucose 446 mg/dL (65-100) H 08/27/19 18:33 POC Glucose 247 (70-105) H 08/28/19 13:27 Hemoglobin A1c 11.1 % (4-6) H 08/27/19 18:33 Calcium 9.5 mg/dL (8.4-10.2) 08/27/19 18:33 Magnesium 1.60 mg/dL (1.7-2.3) L 08/27/19 17:15 Total Bilirubin 0.50 mg/dL (0.1-1.2) 08/27/19 17:15 AST 18 units/L (5-40) 08/27/19 17:15 ALT 26 units/L (7-56) 08/27/19 17:15 Alkaline Phosphatase 96 units/L (35-129) 08/27/19 17:15 Total Creatine Kinase 49 units/L (30-135) 08/27/19 17:15 Total Protein 7.6 g/dL (6.3-8.2) 08/27/19 17:15 Albumin 4.4 g/dL (3.9-5) 08/27/19 17:15 Albumin/Globulin Ratio 1.4 % 08/27/19 17:15 HCG, Quant 92393 mIU/mL (0-4) H 08/27/19 16:49 Urine Color Straw (Yellow) 08/27/19 16:50 Urine Turbidity Clear (Clear) 08/27/19 16:50 Urine pH 6.0 (5.0-7.0) 08/27/19 16:50 Ur Specific [place] 1.036 (1.003-1.030) H 08/27/19 16:50 Urine Protein <15 mg/dl mg/dL (Negative) 08/27/19 16:50 Urine Glucose (UA) >=500 mg/dL (Negative) 08/27/19 16:50 Urine Ketones 20 mg/dL (Negative) 08/27/19 16:50 Urine Blood Neg (Negative) 08/27/19 16:50 Urine Nitrite Neg (Negative) 08/27/19 16:50 Urine Bilirubin Neg (Negative) 08/27/19 16:50 Urine Urobilinogen < 2.0 mg/dL (<2.0) 08/27/19 16:50 Ur Leukocyte Esterase Neg (Negative) 08/27/19 16:50 Urine WBC (Auto) 3.0 /HPF (0.0-6.0) 08/27/19 16:50 Urine RBC (Auto) 4.0 /HPF (0.0-6.0) 08/27/19 16:50 U Epithel Cells (Auto) < 1.0 /HPF (0-13.0) 08/27/19 16:50 Urine Mucus Few /HPF 08/27/19 16:50 Urine Opiates Screen Presumptive negative 08/27/19 16:50 Urine Methadone Screen Presumptive negative 08/27/19 16:50 Ur Barbiturates Screen Presumptive negative 08/27/19 16:50 Ur Phencyclidine Scrn Presumptive negative 08/27/19 16:50 Ur Amphetamines Screen Presumptive negative 08/27/19 16:50 U Benzodiazepines Scrn Presumptive negative 08/27/19 16:50 Urine Cocaine Screen Presumptive negative 08/27/19 16:50 U Marijuana (THC) Screen Presumptive positive 08/27/19 16:50 Drugs of Abuse Note Disclamer 08/27/19 16:50 Blood Type B POSITIVE 08/27/19 17:15 Antibody Screen Negative 08/27/19 17:15 Loyd/IV: Voiding Method Toilet IV Catheter Type [Right Peripheral IV Antecubital] Active Medications - Current Medications Current Medications: Generic Name Dose Route Start Last Admin Trade Name Freq PRN Reason Stop Dose Admin Dextrose 50 ml 08/27/19 19:02 D50w (25gm) Syringe IV Q30MIN PRN Hypoglycemia Protocol Hydralazine HCl 10 mg 08/28/19 17:20 Apresoline IV Q4HR PRN Hypertension Sodium Chloride 1,000 mls @ 125 mls/hr 08/27/19 19:15 08/28/19 01:38 Nacl 0.9% 1000 Ml IV 125 mls/hr DIRECT LAILA Administration Insulin Human Isoph/Insulin Regular 8 unit 08/29/19 08:00 Humulin 70/30 SUB-Q BIDDIAB LAILA Insulin Human Isoph/Insulin Regular 8 unit 08/28/19 17:25 Humulin 70/30 SUB-Q 08/28/19 17:26 ONCE ONE Insulin Human Regular 0 units 08/28/19 00:00 08/28/19 13:24 Humulin R SUB-Q 6 units Q6HR LAILA Administration Protocol Lorazepam 1 mg 08/28/19 17:20 Ativan PO QHS PRN Anxiety Sodium Chloride 10 ml 08/27/19 22:00 08/28/19 13:25 Sodium Chloride Flush Syringe 10 Ml IV 10 ml BID LAILA Administration Sodium Chloride 10 ml 08/27/19 18:25 Sodium Chloride Flush Syringe 10 Ml IV PRN PRN LINE FLUSH Nutrition/Malnutrition Assess - Dietary Evaluation Nutrition/Malnutrition Findings: Nutrition Notes Start: 08/28/19 13:40 Freq: Status: Active Protocol: Document 08/28/19 13:40 LM (Rec: 08/28/19 13:50 LM [id number]) Nutrition Notes Need for Assessment generated from: yarder,Education Initial or Follow up Brief Note Current Diagnosis Diabetes Other Pertinent Diagnosis 10 weeks gestation, DKA, pregestational DM, hyperemesis gravidarum Current Diet No diet Labs/Tests POC glu 189 Pertinent Medications NaCl at 125ml/hr Height 5 ft 6 in Weight 77.9 kg Roll Body Weight (kg) 59.09 BMI 27.7 Weight Status Overweight Subjective/Other Information RN screen for new onset DM. Pt is newly dx with DM. Unable to speak to pt. Nutrition Intervention Follow-Up By: 08/29/19 Additional Comments F/U for assessment, diet advancement, DM education
[2019-08-28] MEDS ORDERED: INSULIN NPH/REGULAR 70/30 INJ SUB-Q ONE (18:00)
[2019-08-28] MEDS: ENOXAPARIN 40 MG/0.4 ML INJ SUB-Q SCH ×2 (22:38→22:40)
[2019-08-29] MEDS: INSULIN REGULAR, HUMAN 100 UNITS/1 ML SUB-Q SCH ×4 (00:42→18:11)
[2019-08-29] MEDS: SODIUM CHLORIDE 0.9% 1000 ML 1,000 ML IV SCH ×2 (01:58→10:01)
[2019-08-29 04:47] LABS: BUN/Creatinine Ratio 17; Blood Urea Nitrogen 5 mg/dL (7-17); Hemolysis Index 4
[2019-08-29] MEDS: INSULIN NPH/REGULAR 70/30 INJ SUB-Q SCH ×2 (10:01→18:56)
--- NOTE | 2019-08-29 10:01 | Event Note ---
Date: 08/29/19 Please note: this patient has new onset PREGESTATIONAL DIABETES. Gestational diabetes is diagnosed at 25-28 weeks with increase in human placental lactogen that causes increased insulin resistance in the peripheral tissue. DKA at 10 weeks is a pre-existing condition not related to . Cesar GONZALEZ
[2019-08-29 12:47] VITALS: BP 132/90
--- NOTE | 2019-08-29 13:26 | Discharge Summary ---
Providers - Providers Date of Admission: 08/27/19 18:25 Date of discharge: 08/29/19 Attending physician: VADIM ERWIN 08/27/19 18:16 Consult to Physician [CONS] Urgent Comment: DR ANALISA ACUÑA W/DR SHELL @[id number] Consulting Provider: NINA STAPLES Physician Instructions: Reason For Exam: , n/v 08/29/19 13:10 Consult to Dietitian/Nutrition [CONS] Stat Physician Instructions: Reason For Exam: diabetic education Reason for Consult: Diet education Primary care physician: [facility] RESEARCHER Hospitalization Reason for admission: Uncontrolled blood sugars. Condition: Stable Hospital course: Patient 33-year-old without any known history of diabetes mellitus presented with chief complaint nausea vomiting polyuria polydipsia was 10 weeks . Was thinking that that may be because of patient's symptoms. Upon presentation patient was found to have uncontrolled blood sugars with DKA. Agree with pre- existing condition most likely. Patient was placed on insulin stabilize. Patient will be discharged home on insulin until baby is born and will need to follow with primary care physician for further titration. Disposition: DC- TO HOME OR SELFCARE - Discharge Diagnoses (1) DKA (diabetic ketoacidoses) Status: Acute Qualifiers: Diabetes mellitus complication detail: without coma Comment: Patient DKA has resolved. Will receive diabetic education. Accu-Cheks twice daily. Will place patient on insulin. Will most likely need to remain on insulin until baby is conceived. For tight and aggressive control. Will follow with primary care physician 5 to 7 days. (2) Dehydration Status: Acute Comment: Resolved with IV volume replacement. (3) Metabolic acidosis Status: Resolved (4) Status: Acute Qualifiers: Weeks of gestation: 10 weeks Qualified Code(s): Z3A.10 - 10 weeks gestation of Comment: Patient at 10 weeks gestation. Agree with consultation most likely pre-existing condition. Core Measure Documentation - Palliative Care Palliative Care/ Comfort Measures: Not Applicable - Core Measures Any of the following diagnoses?: none Exam - Constitutional Vitals: Temp Pulse Resp BP Pulse Ox 98.3 F 100 H 16 132/90 99 08/29/19 12:44 08/29/19 12:44 08/29/19 12:44 08/29/19 12:44 08/29/19 12:44 General appearance: Present: no acute distress, well-nourished - EENT Eyes: Present: PERRL ENT: hearing intact, clear oral mucosa - Neck Neck: Present: supple, normal ROM - Respiratory Respiratory effort: normal Respiratory: bilateral: CTA - Cardiovascular Heart Sounds: Present: S1 & S2. Absent: rub, click - Extremities Extremities: pulses symmetrical, No edema Peripheral Pulses: within normal limits - Abdominal General gastrointestinal: Present: soft, non-tender, non-distended, normal bowel sounds Female genitourinary: Present: normal - Integumentary Integumentary: Present: clear, warm, dry - Musculoskeletal Musculoskeletal: gait normal, strength equal bilaterally - Psychiatric Psychiatric: appropriate mood/affect, intact judgment & insight - Neurologic Neurologic: CNII-XII intact, moves all extremities Plan Activity: no restrictions Diet: low fat, diabetic Follow up with: PRIMARY CARE, [Primary Care Provider] - 7 Days Prescriptions: Insulin NPH/Regular [NovoLIN 70/30] 8 unit SUB-Q BIDDIAB #1 units
== END 2019-08-29 19:00 | disposition home or self-care (01) | DRG 831 ==
LOC: ED 16:15 → CC1 18:25 → 4A 23:00
PROVIDERS: ADMIT Internal Medicine; ATTEND Internal Medicine
DX: O24.111 Pre-existing type 2 diabetes mellitus, in pregnancy, first trimester (principal); E11.10 Type 2 diabetes mellitus with ketoacidosis without coma; E87.1 Hypo-osmolality and hyponatremia; O99.341 Other mental disorders complicating pregnancy, first trimester; F41.9 Anxiety disorder, unspecified; O99.281 Endocrine, nutritional and metabolic diseases complicating pregnancy, first trimester; E11.65 Type 2 diabetes mellitus with hyperglycemia; E86.0 Dehydration; Z3A.10 10 weeks gestation of pregnancy; E83.42 Hypomagnesemia; Z91.048 Other nonmedicinal substance allergy status; Z82.49 Family history of ischemic heart disease and other diseases of the circulatory system; Z83.3 Family history of diabetes mellitus
CPT/HCPCS: 36415; 76801; 76817; 80048; 80053; 80307; 81001; 82550; 82962; 83036; 83735; 84702; 85014; 85018; 85049; 85610; 86850; 86900; 86901; 93005; 93010; G0378; J1650; J1815; J2765; J3475; J7030

== ENCOUNTER 2020-02-08 22:33 | Outpatient (CLI) | payer OTHER, MEDICAID ==
[2020-02-08] MEDS ORDERED: LACTATED RINGERS 1,000 ML IV ONE (23:02)
[2020-02-08 23:33] VITALS: BP 118/75
== END 2020-02-09 00:30 | disposition home or self-care (01) ==
LOC: TRG 22:33 → APU 22:40 → TRG 02-09 00:30
PROVIDERS: ATTEND Obstetrics & Gynecology
DX: O26.853 Spotting complicating pregnancy, third trimester (principal); Z87.891 Personal history of nicotine dependence; Z3A.33 33 weeks gestation of pregnancy
CPT/HCPCS: 59025; 96360; J7120